=== PATIENT | female | born 1975 | race Caucasian/White ===

== ENCOUNTER 2016-11-19 15:54 | Observation (INO) | payer BC ==
[2016-11-19] MEDS ORDERED: Morphine INJ* 4 MG/ML 1 ML CARPUJECT IV ONE (16:49)
[2016-11-19] MEDS ORDERED: Metoclopramide IV* 5 MG/ML 2 ML VIAL IV SLOW PU ONE (16:49)
--- NOTE | 2016-11-19 16:52 | ED ---
- HPI Summary HPI Summary: 40F LMP in september presents with lower abdominal pain for a day. She took a test on saturday and it was positive. She states since then she has developed nausea and vomiting. She has been having different pelvic pain over past couple days. Today she developed pain in RLQ that radiates down right leg. She states her pain radiates to her flank. She denies any dysuria, frequency, urgency. She has never experienced this pain in before. She has never had this pain before. She denies any previous abdominal surgeries. She denies any fever. She denies any constipation or diarrhea. She admits to anorexia. She has sacroiliac joint disfunction and take percocet and morphine patch daily. - History of Current Complaint Chief Complaint: EDAbdPain Stated Complaint: ABD/LOWER BACK PAIN Time Seen by Provider: 11/19/16 16:35 Pain Intensity: 7 - Assessment Hx Hysterectomy: No - Allergies/Home Medications Allergies/Adverse Reactions: Allergies Allergy/AdvReac Type Severity Reaction Status Date / Time No Known Allergies Allergy Verified 11/19/16 16:14 Home Medications: Home Medications Aspirin TAB* [Aspirin 325 MG TAB*] 325 mg PO Q6H PRN 11/19/16 [History Confirmed 11/19/16] Buprenorphine 15 MCG PATCH(NF) [Butrans 15 MCG PATCH(NF)] 15 mcg TRANSDERM WEEKLY 11/19/16 [History Confirmed 11/19/16] Cyanocobalamin TAB (NF) [B-12 Tabs (Nf)] 2,500 mcg SL DAILY 11/19/16 [History Confirmed 11/19/16] DULoxetine CAP* [Cymbalta CAP*] 60 mg PO DAILY 11/19/16 [History Confirmed ] Hydrocodone-Acetaminophen [Lorcet Plus 7.5-325 mg] 1 tab PO TID MDD 3 tabs 11/19 [History Confirmed 11/19/16] PMH/Surg Hx/FS Hx/Imm Hx Endocrine/Hematology History: Denies: Hx Diabetes Cardiovascular History: Denies: Hx Hypertension, Hx Pacemaker/ICD History: Denies: Hx Dialysis, Hx Renal Disease Musculoskeletal History: Reports: Hx Back Problems Sensory History: Denies: Hx Hearing Aid Neurological History: Reports: Other Neuro Impairments/Disorders - PAIN CLINIC PT Psychiatric History: Reports: Hx Anxiety Denies: Hx Panic Disorder - Cancer History Cancer Type, 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 - Surgical History Surgery Procedure, Year, and Place: LEEP PROCEDURE 2006 Infectious Disease History: No Infectious Disease History: Denies: Traveled Outside the [place] in Last 30 Days - Family History Known Family History: Positive: Hypertension - Social History Alcohol Use: None Alcohol Amount: 1/2 to one glass of wine a night Substance Use Type: Reports: None Substance Use Comment - Amount & Last Used: recent overuse of medications Hydrocodone and Lyrica Smoking Status (MU): Light Every Day Tobacco Smoker Type: Cigarettes Amount Used/How Often: 1/3 PPD Have You Smoked in the Last Year: Yes Review of Systems Negative: Fever Negative: Chest Pain Negative: Shortness Of Breath Positive: Abdominal Pain, Vomiting, Nausea. Negative: Diarrhea All Other Systems Reviewed And Are Negative: Yes Physical Exam - Physical Exam Triage Information Reviewed: Yes Vital Signs Reviewed: Yes Appearance: Positive: Pain Distress Skin: Positive: Warm, Dry Head/Face: Positive: Normal Head/Face Inspection Eyes: Positive: Normal, EOMI, ELOY, Conjunctiva Clear ENT: Positive: Normal ENT inspection, Pharynx normal, TMs normal Respiratory/Lung Sounds: Positive: Clear to Auscultation, Breath Sounds Present Cardiovascular: Positive: Normal, RRR Abdomen Description: Positive: Soft, Other: - tenderness in RLQ and LLQ, no rebound Bowel Sounds: Positive: Present Psychiatric: Positive: Anxious Diagnostics - Vital Signs Vital Signs Temp Pulse Resp BP Pulse Ox 11/19/16 16:15 99.3 F 126 20 107/74 97 - Laboratory Result Diagrams: 11/19/16 16:56 11/19/16 16:56 Lab Statement: Any lab studies that have been ordered have been reviewed, and results considered in the medical decision making process. - Ultrasound No standard instances Ultrasound Interpretation: Positive (See Comments) - IMPRESSION: In the right lower quadrant apparently corresponding to the patient's site of maximum tenderness there is a 2.3 x 2.3 mostly fluid-filled structure that could represent an enlarged appendix or a peritoneal fluid collection. 1. There is an empty gestational sac measuring 3 mm in average dimension which corresponds to a gestational age of 4 weeks and 5 days. The diagnostic possibilities include a gestation that is too early to visualize, spontaneous or ectopic . Recommend close clinical and maternal monitoring including acquisition of serial beta-hCG. 2. At least one uterine fibroid is noted unlikely to BE related to the patient's current presentation. Ultrasound Interpretation Completed By: Radiologist Course/Dx - Course Course Of Treatment: 40F LMP in september presents with lower abdominal pain for a day. She took a test on saturday and it was positive. She states since then she has developed nausea and vomiting. She has been having different pelvic pain over past couple days. Today she developed pain in RLQ that radiates down right leg. She states her pain radiates to her flank. She denies any dysuria, frequency, urgency. She has never experienced this pain in before. She has never had this pain before. She denies any previous abdominal surgeries. She denies any fever. She denies any constipation or diarrhea. She admits to anorexia. on exam tender RLQ and LLQ. greatest in RLQ, pos obturator. is in visible pain distress. wbc 21 with left shift. u/s shows fluid filled structure in RLQ. could be appendicitis vs ectopic. spoke with dr erickson and dr north. patient does not want so dr erickson is getting CT. CT shows appendicitis. dr Erickson is taking to OR for appendicitis. - Differential Diagnosis/HQI/PQRI: Appendicitis, Ectopic , Ovarian Torsion - Diagnoses Provider Diagnoses: Appendicitis Discharge - Discharge Plan Condition: Guarded Disposition: ADMITTED TO [facility]
[2016-11-19] MEDS: NS 0.9% 1000 ML* 2,000 ML IV ONE ×2 (16:56→18:53)
[2016-11-19 17:04] LABS: Hematocrit 38 % (35-47); Hemoglobin 12.9 g/dl (12.0-16.0); Mean Corpuscular HGB Conc 34 g/dl (31-36); Mean Corpuscular Hemoglobin 33 pg (27-31); Mean Corpuscular Volume 98 fL (80-97); Mean Platelet Volume 9 um3 (7.4-10.4); Red Blood Count 3.88 10^6/ul (4.0-5.4); Red Cell Distribution Width 13 % (10.5-15)
[2016-11-19] MEDS ORDERED: HYDROmorphone INJ* 1 MG/ML CARPUJECT SYRINGE IV SLOW PU ONE ×4 (17:05→18:46)
[2016-11-19] MEDS ORDERED: HYDROmorphone INJ* 1 MG/ML CARPUJECT SYRINGE ONE (17:06)
[2016-11-19 17:22] LABS: ALT 16 U/L (7-52); AST 22 U/L (13-39); Albumin 3.6 g/dL (3.2-5.2); Alkaline Phosphatase 67 U/L (34-104); Anion Gap 8 mmol/L (2-11); BUN/Creatinine Ratio 11.7 (8-20); Blood Urea Nitrogen 7 mg/dL (6-24); CO2 Carbon Dioxide 24 mmol/L (22-32); Calcium 8.8 mg/dL (8.6-10.3); Chloride 101 mmol/L (101-111); EGFR African American 142.4 (>60); EGFR Non-African American 110.7 (>60); Globulin 2.6 g/dL (2-4); Glucose 150 mg/dL (70-100); Lipase < 10 U/L (11.0-82.0); Potassium 3.7 mmol/L (3.5-5.0); Sodium 133 mmol/L (133-145); Total Protein 6.2 g/dL (6.4-8.9)
[2016-11-19 17:56] LABS: Urine Bacteria Absent (Absent); Urine Bilirubin Negative (Negative); Urine Glucose Negative (Negative); Urine Nitrite Negative (Negative)
--- NOTE | 2016-11-19 18:59 | RAD ---
INDICATION: Pelvic pain in a woman with a positive beta-hCG. COMPARISON: CT abdomen pelvis April 21, 2015. TECHNIQUE: Real time ultrasound images of the right lower quadrant were acquired in wilson scale and Doppler color flow. FINDINGS: In the right lower quadrant there is a fluid containing blind-ending tubular structure measuring up to 2.3 x 2.3 cm in diameter. The basket machine operator reports the patient exhibits severe pain with compression and therefore compressibility cannot be determined. There are no definite large lymph nodes identified. IMPRESSION: In the right lower quadrant apparently corresponding to the patient's site of maximum tenderness there is a 2.3 x 2.3 mostly fluid-filled structure that could represent an enlarged appendix or a peritoneal fluid collection.
--- NOTE | 2016-11-19 19:10 | RAD ---
HISTORY: Increasingly severe right-sided pelvic pain x1 day COMPARISONS: None TECHNIQUE: Multiple transverse and longitudinal ultrasound images were obtained of the pelvis using grayscale, color flow, spectral and M-mode sonographic imaging. Please note evaluation is severely limited due to the patient's pain level and intolerance of the ultrasound probe. FINDINGS: UTERUS: The uterus measures 8.7 x 4.6 x 6.9 cm. The endometrial stripe measures up to 2.1 cm in thickness. At least one hypoechogenic subserosal focus could be a uterine fibroid. GESTATION: There is a small fundal height gestational sac measuring 3 mm in average dimension corresponding to a gestational age of 4 weeks and 5 days. There is no products of conception located within this gestational sac. CUL-DE-SAC: There is a small amount of free fluid in the cul-de-sac. RIGHT OVARY: The right ovary measures 4.6 x 2.2 x 3.1 cm. Within the right ovary there is a heterogeneous and avascular structure measuring 1.8 x 1.3 x 2.0 cm. LEFT OVARY: The left ovary measures 3.2 x 1.7 x 2.5 cm. IMPRESSION: 1. There is an empty gestational sac measuring 3 mm in average dimension which corresponds to a gestational age of 4 weeks and 5 days. The diagnostic possibilities include a gestation that is too early to visualize, spontaneous or ectopic . Recommend close clinical and maternal monitoring including acquisition of serial beta-hCG. 2. At least one uterine fibroid is noted unlikely to BE related to the patient's current presentation.
[2016-11-19] MEDS ORDERED: Iohexol 300* (CONTRAST) 10 ML SDV IV ONE (20:21)
--- NOTE | 2016-11-19 20:58 | RAD ---
CLINICAL HISTORY: 24 hours of mostly right-sided abdominal pain with leukocytosis. The patient currently has a positive beta-hCG. COMPARISON: Same day ultrasound of the pelvis and right lower quadrant. TECHNIQUE: Contrast enhanced CT examination of the abdomen and pelvis from the lung bases through the initial tuberosities. The patient received 69 mL Omnipaque 300 intravenously prior to imaging. The patient did not receive oral contrast. FINDINGS: VISUALIZED LUNG BASES: The visualized lung bases are grossly clear. There is no pleural effusion. ABDOMEN AND PELVIS: There is focal fatty infiltration adjacent to the falciform ligament. The liver is otherwise homogenous in attenuation. The spleen, pancreas and adrenal glands are grossly normal in appearance. The gallbladder is normal. The kidneys are normal in appearance without focal mass, calcification or signs of hydronephrosis. There is no pathologic dilatation of the small or large bowel. There is hyperdense material in the base of the cecum and proximal portion of the transverse colon. There is hyperdense material in the proximal portion of the appendix (axial image 129 and coronal images 33 through 39). At its proximal portion the appendix measures up to 1.26 cm in diameter. At the appendiceal tip there is an intraluminal fluid collection measuring approximately 1.5 x 1.5 cm in the axial plane and 2.4 cm in the cephalocaudal projection. There is scattered peritoneal ascites predominantly located in the pelvis surrounding the uterus. There is no gross retroperitoneal or mesenteric lymphadenopathy. The pelvic viscera is normal in appearance. At the right adnexa there is a 1.6 cm low-density structure corresponding to the ovarian cyst seen on the previous pelvic ultrasound. The abdominal aorta and iliac arteries are normal in course and diameter. There is mild levoconvex curvature of the lower thoracic and lumbar spine.There are no sinister bone lesions. IMPRESSION: 1. CT findings are most consistent with acute appendicitis with scattered peritoneal ascites predominantly involving the the pelvic peritoneal cavity. 2. Knowing the patient has a positive beta-hCG, ectopic should still be a diagnostic consideration. 3. Hyperdense material in the colon could be seen with recent ingestion of antacids. Findings were reviewed in person with Dr. Velasquez at approximately 2040 hours on November 19, 2016.
[2016-11-19] MEDS ORDERED: Piperacillin/Tazobactam VIAL*) 3.375 GM VIAL (COMPD & OVERRIDE) IVPB ONE (21:53)
[2016-11-19] MEDS ORDERED: fentaNYL* 50 MCG/ML 2 ML VIAL (100 MCG VIAL) ONE (22:11)
[2016-11-19] MEDS ORDERED: Midazolam* 1 MG/ML 5 ML VIAL (5 MG) ONE (22:11)
[2016-11-19] MEDS ORDERED: Rocuronium* 10 MG/ML VIAL ONE (22:23)
[2016-11-19] MEDS ORDERED: Labetalol IV* 5 MG/ML 20 ML VIAL ONE (22:39)
[2016-11-19] MEDS ORDERED: Dexamethasone IV* 4 MG/ML 1 ML (4 MG) ONE (22:40)
[2016-11-19] MEDS ORDERED: Propofol* 10 MG/ML 20 ML BTL IV PUSH ONE (22:40)
[2016-11-19] MEDS ORDERED: Lidocaine 2% PF * 5 ML VIAL ONE (22:40)
[2016-11-19] MEDS ORDERED: Famotidine IV* 10 MG/ML 2 ML (20 mg) ONE (22:40)
[2016-11-19] MEDS ORDERED: Phenylephrine IV* 40 MCG/ML 10 ML SYRINGE ONE (22:41)
[2016-11-19] MEDS ORDERED: Bupivacaine 0.25% SDV* 30 ML ONE (22:48)
[2016-11-19] MEDS ORDERED: Buffered Lidocaine 0.9% SYRIN* 5 ML/SYR SYRINGE INTRADERM ONE (22:52)
[2016-11-19] MEDS ORDERED: Hetastarch in NS* 500 ML IV ONE (22:54)
[2016-11-19] MEDS ORDERED: fentaNYL* 50 MCG/ML 2 ML VIAL (100 MCG VIAL) IV PRN (23:15)
[2016-11-19] MEDS ORDERED: Acetaminophen TAB* 325 MG PO PRN (23:15)
[2016-11-19] MEDS ORDERED: PROCHLORPERAZINE INJ 5 MG/ML 2 ML VIAL IV PRN (23:15)
[2016-11-19] MEDS ORDERED: DiMENhydriNATE IV* 50 MG/ML VIAL IV PUSH PRN (23:15)
[2016-11-19] MEDS ORDERED: Ondansetron INJ* 2 MG/ML VIAL ONE (23:48)
--- NOTE | 2016-11-20 | HP ---
CC: [facility]; Dr. Cintron; Dr. Hare, [facility] * HISTORY AND PHYSICAL: DATE OF ADMISSION: 11/19/16 REASON FOR CONSULTATION: Right lower quadrant abdominal pain, anorexia, and new . HISTORY OF PRESENT ILLNESS: Ms. Faina Fischer is a 40-year-old woman without significant medical history, although she has chronic low back pain and pelvic discomfort, who yesterday developed some upper abdominal pain, mainly epigastric associated with some anorexia. She slept last night, woke up this morning with pain that had been now migrated into the right lower quadrant, which became quite severe over the course of the day. It hurts to move, cough, or lift her legs. She had no fevers, but had been anorexic all day. There has been no diarrhea, change in bowel habits nor she had any vaginal bleeding. Of note, she has just found out on Saturday that she was and this was not a planned . There is documentation in the chart from her Model Dresser, Dr. Cintron documenting a conversation with her that she and her have planned to terminate the . When seen in the ER she was noted to be afebrile, but had a heart rate into the 120s. Laboratory workup included a white cell of 21,000 with a left shift. She had a beta hCG of 2873. Electrolytes were within normal limits. She was noted to have lower abdominal pain. She underwent a transvaginal ultrasound. I discussed these with the radiologist , Dr. Xiong. This showed an empty gestational sac, perhaps with a size that corresponded about 4 weeks and 5 days, which showed findings worrisome for an pending spontaneous or ectopic . Uterine fibroid was also noted. She also underwent a right lower quadrant ultrasound, which showed tenderness on deeper palpation and also a 2.3 x 2.3 cm mostly fluid-filled structure, noncompressible, which could represent a fluid collection or an enlarged appendix. After discussion with the patient and her , and the fact that she and her decided to terminate the due to their present circumstances and situation, she underwent a CT scan of the abdomen and pelvis. The radiologist was informed of this radiation exposure in a woman, as well as the fact that she is planning to electively terminate the and that a CT scan would give additional diagnostic input regarding her diagnosis. The CAT scan of the abdomen and pelvis with IV contrast showed findings of a dilated tubular structure attached to the cecum, most likely consistent with acute appendicitis. However, there was a significant amount of pelvic fluid, more so than felt that from a typical appendicitis and certainly ectopic was considered as a diagnosis. Surgical consultation was obtained. PAST MEDICAL HISTORY: 1. Sacroiliac discomfort. 2. Chronic pelvic and perineal pain. PAST SURGICAL HISTORY: None. MEDICATIONS: Include: 1. Cyanocobalamin. 2. Aspirin. 3. Lorcet. 4. Cymbalta 60 mg daily. 5. Buprenorphine 15 mcg transderm patch weekly for pain. ALLERGIES: She has no known drug allergies. SOCIAL HISTORY: She smokes cigarettes on a daily basis. She is , has a 4- year-old son and an older 20-year-old daughter. She drinks alcohol occasionally and socially. REVIEW OF SYSTEMS: As per above. She has had no vaginal bleeding or drainage. She has had no urinary complaints. There has been no hematuria. PHYSICAL EXAMINATION GENERAL: She is a slender female who appears to be uncomfortable, although she is lying in the gurney. Awake, alert, and conversive. VITAL SIGNS: Temperature is 99.3, pulse is 124, blood pressure is 108/63. HEENT: Oral mucosa is slightly dry. LUNGS: Clear to auscultation with normal respiratory effort. HEART: Regular rate and rhythm without murmurs, rubs, or gallops. ABDOMEN: Firm and nondistended. There are no prior surgical incisions or hernias. She had diminished bowel sounds throughout. She has tenderness in the right lower quadrant with some rigidity and guarding. She has no generalized peritoneal irritation; however, this appears to be localized and her findings are consistent with localized right lower quadrant peritonitis. IMPRESSION: Right lower quadrant abdominal pain, leukocytosis, and workup most likely consistent with acute appendicitis. She also is newly discovered that she is and certainly concerned especially with the ultrasound findings is that of an ruptured ectopic , although this is early in the course of her for such an event. After reviewing her history, presentation, and physical examination as well as discussing her care with Dr. Daniel Martell from Obstetrics and Gynecology, he also feels less likely that this is an ectopic ; however, certainly could be a possibility. At this point, I have recommended now, however, that we proceed with a diagnostic laparoscopy for Mrs. Fischer. I have discussed this with both her and her . They understand the workup so far and also agree with the recommendation that this is indicated. Plan for tonight is diagnostic laparoscopy, probable laparoscopic appendectomy. Dr. Martell is going to be available and we will have come in for intraoperative consultation depending on the findings to evaluate ovaries, uterus, and fallopian tubes, especially if the appendix does not appear to be significantly inflamed. Certainly, I have also discussed the fact there is may be another entity causing her discomfort and that other surgical indicated procedures may be necessary to perform. Overall, the risks are but not limited to bleeding, infection, intraabdominal abscess formation, possibility of an open procedure, possibility of bowel resection, abscess formation, risk of general anesthesia, deep vein thrombosis were all explained. Both she and her gave consent to proceed and we will plan this for this evening. She will be started on IV Zosyn. [id number]/[facility] #: [id number] MTDD
--- NOTE | 2016-11-20 00:09 | SURGPN ---
Brief Operative Note - Surgery Procedures: OPERATIVE REPORT PRE-OP: Right lower abdominal pain, leukocytosis POST-OP: Same, Perforated gangrenous appendicitis with purulent peritonitis PROCEDURE: Laparoscopic appendectomy SURGEON: MD Ron ANESTHESIA: General with Local, Dr. Ryan ASST: none IVF: 1 liter of crystalloid, 500 cc of hetastarch EBL: min SPECIMEN: appendix DRAIN: # 10 CHOLO drain WOUND CLASS: 4 COMPLICATIONS: none TO PACU
[2016-11-20] MEDS ORDERED: Acetaminophen TAB* 325 MG PO PRN (00:11)
[2016-11-20] MEDS ORDERED: HYDROmorphone INJ* 1 MG/ML CARPUJECT SYRINGE IV SLOW PU PRN (00:11)
[2016-11-20] MEDS ORDERED: oxyCODONE/Acetamin 5/325 MG* TAB PO PRN (00:14)
[2016-11-20] MEDS: NS 0.9% 1000 ML* 1,000 ML IV SCH ×3 (01:28→18:35)
[2016-11-20] MEDS: Ondansetron INJ* 2 MG/ML VIAL IV SCH ×6 (01:28→21:44)
[2016-11-20] MEDS: Ketorolac INJ* 30 MG/ML 1 ML VIAL IV PUSH PRN (02:55)
--- NOTE | 2016-11-20 08:42 | PN ---
Progress Note - Progress Note Date of Service: 11/20/16 SOAP: Subjective: Awake and alert this morning-feels much better Pain is adequately controlled. Tolerating clear liquids and no N/V Objective: Temp Pulse Resp BP Pulse Ox 99.6 F 91 16 90/53 100 11/20/16 07:22 11/20/16 07:31 11/20/16 07:22 11/20/16 07:39 11/20/16 07:22 Intake & Output 11/18/16 11/19/16 11/20/16 11/21/16 06:59 06:59 06:59 06:59 Intake Total 2600 Output Total 640 Balance 1960 Weight 113 lb Intake: IV Fluids 2600 HETASTARCH 500 LR 1000 NS 100ML, Zosyn 3.375G 100 Output: CHOLO #1 190 Urine 450 PEX: Awake and alert Lungs are clear Cor is RRR Abd is soft and slightly distended. Bowel sounds are absent. Incisions are clean and dry. CHOLO in place with serosanguinous fluid in bulb Labs are pending Assessment: POD #1 s/p lap appy for perforated appendicititis with purulent peritonitis Pregnacy-please see previous notes Plan: IV Abx IVF Increase activity Po as tolerated She plans termination of -this had been decided before she developed appendicitis. She requires inpatient care as above.
[2016-11-20] MEDS: DULoxetine DR CAP* 30 MG CAP.DR PO SCH (09:06)
[2016-11-20] MEDS: oxyCODONE/Acetamin 5/325 MG* TAB PO PRN ×4 (09:06→21:43)
[2016-11-20 10:03] LABS: Hematocrit 31 % (35-47); Hemoglobin 10.4 g/dl (12.0-16.0); Mean Corpuscular HGB Conc 34 g/dl (31-36); Mean Corpuscular Hemoglobin 34 pg (27-31); Mean Corpuscular Volume 100 fL (80-97); Mean Platelet Volume 10 um3 (7.4-10.4); Red Cell Distribution Width 13 % (10.5-15); White Blood Count 13.9 10^3/ul (3.5-10.8)
[2016-11-20 10:14] LABS: BUN/Creatinine Ratio 13.3 (8-20); EGFR African American 142.4 (>60); EGFR Non-African American 110.7 (>60); Potassium 3.5 mmol/L (3.5-5.0)
--- NOTE | 2016-11-20 14:28 | OP ---
CC: Dr. Chong Cintron, Rheumatology; Dr. Hare, [facility] Medicine * DATE OF OPERATION: 11/20/16 - ROOM #332 DATE OF : 75 SURGEON: Zaheer Velasquez MD WATER/WASTEWATER PROJECT ENGINEER: None. ANESTHESIOLOGIST: Michelle Ryan MD ANESTHESIA: General with local. PRE-OP DIAGNOSES: 1. Leukocytosis with right lower quadrant abdominal pain. 2. . POST-OP DIAGNOSES: 1. Leukocytosis with right lower quadrant abdominal pain. 2. Gangrenous perforated appendicitis with generalized purulent peritonitis. OPERATIVE PROCEDURE: Laparoscopic appendectomy. INDICATIONS: Ms. Faina Fischer is a 40-year-old woman with chronic low back pain and arthritis and who also recently found out that she was approximately 4 to 5 weeks, presented to the emergency room with just over 24 hours of severe abdominal discomfort mainly in the right side. She had leukocytosis. Ultrasound showed findings were suspicious acute appendicitis and confirmed by CT scan. She is , this is an unplanned and after discussion with her and her , the plan is for termination of the . Obstetrics was also consulted as there was also a concern for a possible ectopic in the differential diagnosis. She is now being taken to the operating room for laparoscopy. IV FLUIDS: 1 L of crystalloid, 500 cc of hetastarch. ESTIMATED BLOOD LOSS: Not recorded. URINE OUTPUT: Not recorded. SPECIMEN: Appendix. WOUND CLASSIFICATION: IV. DRAINS: #10 CHOLO drain down in the pelvis. COMPLICATIONS: None. DESCRIPTION OF PROCEDURE: Written informed consent was obtained, the abdomen was marked with indelible ink and preoperative antibiotics were administered. The patient was taken to the operating room and placed in the supine position. Sequential compression devices and warming blanket were applied. General anesthesia was administered and the abdomen was prepped and draped in the usual sterile fashion. Time-out verification was completed. A small transverse incision was made just above the umbilicus. The peritoneal cavity was entered under direct vision. A 12-mm blunt port was inserted and the abdomen was insufflated to 15 mmHg. Under direct vision, a 5-mm port was placed in the left lower abdominal wall and a second 5-mm port was placed in the suprapubic position. It was obvious that there was purulent peritonitis in all 4 quadrants of the abdomen with fibrin and turbid fluid especially in the pelvis, lower abdomen, and also around the liver and spleen as well. With careful evaluation, I was able to reflect the omentum superiorly and initially view of the right lower quadrant revealed a gangrenous appendicitis with areas of perforation. This was stuck to the lateral sidewall. I was able to peel off the small bowel to expose this and bring this up into view. The mesentery was identified and divided from the distal appendix towards the cecum. The cecum appeared to be normal. The LigaSure device was used to divide the mesentery and care was to prevent further spillage from several holes in the appendix throughout the remainder of the case. The base of the cecum appeared to be unremarkable and healthy and used a lainez load of an Endo NERY 45-mm stapler to divide the appendix at its base. Staple line was intact through viable tissue. The appendix was placed in an EndoCatch bag and brought through the umbilical incision. Next used almost 8 to 9 L of saline irrigation all 4 quadrants of the abdomen including the pelvis. I was able to visualize the uterus, which appeared to be normal other than erythematous. Dr. Martell from Obstetrics did view this area, although it was difficult due to the bowel distention, but in light of the diagnosis, we felt that obvious related source as such as an ectopic of her pain was certainly much less likely. Once the irrigation had cleared significantly, I placed a #10 CHOLO drain down into the pelvis, behind the uterus, brought up through a separate stab wound to the right side of the abdominal wall. All ports removed under direct vision in the camera. There was no abdominal wall bleeding. The umbilical fascia was closed with interrupted 0 Polysorb suture. The skin was approximated at all 3 incisions with subcuticular 4-0 Polysorb suture. Steri-Strips were applied. The patient tolerated the procedure well and was taken to the recovery room in stable condition. [id number]/[facility] #: [id number] NEIL
[2016-11-20] MEDS: Heparin VIAL(*) 5000 UNITS/ML VIAL (FIVE THOUSAND) SUBCUT SCH ×2 (14:43→21:46)
[2016-11-21] MEDS: oxyCODONE/Acetamin 5/325 MG* TAB PO PRN ×6 (01:43→23:39)
[2016-11-21] MEDS: Ondansetron INJ* 2 MG/ML VIAL IV SCH ×6 (01:44→21:26)
[2016-11-21] MEDS: Ketorolac INJ* 30 MG/ML 1 ML VIAL IV PUSH PRN ×4 (01:51→21:22)
[2016-11-21] MEDS: NS 0.9% 1000 ML* 1,000 ML IV SCH (01:54)
[2016-11-21 05:37] LABS: Hematocrit 28 % (35-47); Hemoglobin 9.5 g/dl (12.0-16.0); Mean Corpuscular HGB Conc 34 g/dl (31-36); Mean Corpuscular Hemoglobin 34 pg (27-31); Mean Corpuscular Volume 99 fL (80-97); Mean Platelet Volume 10 um3 (7.4-10.4); Red Blood Count 2.85 10^6/ul (4.0-5.4); Red Cell Distribution Width 13 % (10.5-15); White Blood Count 12.8 10^3/ul (3.5-10.8)
[2016-11-21] MEDS: Heparin VIAL(*) 5000 UNITS/ML VIAL (FIVE THOUSAND) SUBCUT SCH ×3 (05:42→22:07)
[2016-11-21 05:57] LABS: BUN/Creatinine Ratio 17.3 (8-20); Calcium 7.2 mg/dL (8.6-10.3); EGFR Non-African American 130.6 (>60); Potassium 3.3 mmol/L (3.5-5.0)
[2016-11-21] MEDS ORDERED: NS 0.9% 1000 ML* 1,000 ML IV SCH (08:30)
[2016-11-21] MEDS: DULoxetine DR CAP* 30 MG CAP.DR PO SCH (09:44)
--- NOTE | 2016-11-21 10:41 | PN ---
Progress Note - Progress Note Date of Service: 11/21/16 SOAP: Subjective: She feels better today Ambulating in halls and her pain is improved She is tolerating liquids and is passing flatus, no BM Objective: Temp Pulse Resp BP Pulse Ox 98.0 F 78 18 93/58 98 11/21/16 07:32 11/21/16 07:32 11/21/16 09:45 11/21/16 07:32 11/21/16 08:00 Intake & Output 11/19/16 11/20/16 11/21/16 11/22/16 06:59 06:59 06:59 06:59 Intake Total 3705 5205 Output Total 640 1565 100 Balance 3065 3640 -100 Weight 113 lb Intake: IV Fluids 3705 3416 ABX - ZOSYN 285 HETASTARCH 500 LR 1000 1569 NS 958 NS 100ML, Zosyn 3.375G 100 IVPB 39 Oral 1750 Output: CHOLO #1 190 290 100 Urine 450 1275 Other: # Bowel Movements 0 PEX: Comfortable and awake and alert Lungs are clear Abd is soft and slightly distended. Bowel sounds are present. Incisions are clean and dry. CHOLO in place with some thick yellow turbid fluid in bulb. Laboratory Results - last 24 hr 11/21/16 11/21/16 04:41 04:41 WBC 12.8 H RBC 2.85 L Hgb 9.5 L Hct 28 L MCV 99 H MCH 34 H MCHC 34 RDW 13 Plt Count 146 L MPV 10 Sodium 136 Potassium 3.3 L Chloride 110 Carbon Dioxide 24 Anion Gap 2 BUN 9 Creatinine 0.52 Est GFR ( Amer) 168.0 Est GFR (Non-Af Amer) 130.6 BUN/Creatinine Ratio 17.3 Glucose 82 Calcium 7.2 L Assessment: POD # 2 s/p lap appy for perforated gangrenous appendicitis with purulent peritonitis. WBC improved Plan: Advance diet, decrease IVF Continue IV abx Follow CHOLO drainage-appears purulent today and may keep in for one more day Increase activity and pulmonary toilet Sub q heparin Recheck WBC in AM
[2016-11-21] MEDS ORDERED: HYDROmorphone INJ* 2 MG/ML CARPUJECT SYRINGE IV SLOW PU PRN (20:14)
[2016-11-22] MEDS: Ondansetron INJ* 2 MG/ML VIAL IV SCH ×3 (00:56→09:30)
[2016-11-22] MEDS: oxyCODONE/Acetamin 5/325 MG* TAB PO PRN ×2 (03:38→07:40)
[2016-11-22] MEDS: Ketorolac INJ* 30 MG/ML 1 ML VIAL IV PUSH PRN ×2 (03:39→09:57)
[2016-11-22] MEDS: Heparin VIAL(*) 5000 UNITS/ML VIAL (FIVE THOUSAND) SUBCUT SCH (06:12)
[2016-11-22 06:29] LABS: Hematocrit 27 % (35-47); Hemoglobin 9.3 g/dl (12.0-16.0); Mean Corpuscular HGB Conc 34 g/dl (31-36); Mean Corpuscular Hemoglobin 34 pg (27-31); Mean Corpuscular Volume 99 fL (80-97); Mean Platelet Volume 10 um3 (7.4-10.4); Red Blood Count 2.77 10^6/ul (4.0-5.4); Red Cell Distribution Width 13 % (10.5-15)
[2016-11-22 08:25] VITALS: BP 99/59
[2016-11-22] MEDS: DULoxetine DR CAP* 30 MG CAP.DR PO SCH (09:22)
--- NOTE | 2016-11-22 09:31 | PN ---
Progress Note - Progress Note Date of Service: 11/22/16 SOAP: Subjective: Doing well Tolerating a regular diet Passing flatus Ambulating in halls Pain adequately controlled Objective: Temp Pulse Resp BP Pulse Ox 98.0 F 80 20 99/59 95 11/22/16 07:34 11/22/16 07:34 11/22/16 08:00 11/22/16 07:34 11/22/16 08:55 Intake & Output 11/20/16 11/21/16 11/22/16 11/23/16 06:59 06:59 06:59 06:59 Intake Total 3705 5205 2525 Output Total 640 1565 1790 400 Balance 3065 3640 735 -400 Weight 113 lb Intake: IV Fluids 3705 3416 100 ABX - ZOSYN 285 HETASTARCH 500 LR 1000 1569 NS 958 NS 100ML, Zosyn 3.375G 100 IVPB 39 215 Oral 1750 2210 Output: CHOLO #1 190 290 190 Urine 450 1275 1600 400 Other: # Bowel Movements 0 PEX: Comfortable Lungs are clear Abd is soft and slightly distended. Bowel sounds are present. Incisions are clean and dry. CHOLO in place with serous fluid in bulb. Ext without edema Laboratory Results - last 24 hr 11/22/16 06:01 WBC 9.0 RBC 2.77 L Hgb 9.3 L Hct 27 L MCV 99 H MCH 34 H MCHC 34 RDW 13 Plt Count 150 MPV 10 Neut % (Auto) 83.6 H Lymph % (Auto) 8.7 L [place] % (Auto) 5.1 Eos % (Auto) 2.3 Baso % (Auto) 0.3 Absolute Neuts (auto) 7.5 Absolute Lymphs (auto) 0.8 L Absolute Monos (auto) 0.5 Absolute Eos (auto) 0.2 Absolute Basos (auto) 0 Absolute Nucleated RBC 0 Nucleated RBC % 0 Assessment: POD# 3 s/p lap appy for acute perforated appendicitis with purulent peritonitis Doing well Plan: D/C home 10 days of oral Augmentin Percocet sent to pharmacy Outpatient appointment made Instructions all reviewed with patient and .
--- NOTE | 2016-11-22 10:32 | DS ---
CC: [facility]; Dr. Cintron, [facility]; Dr. Hare of [facility] DATE OF ADMISSION: 11/20/2016. DATE OF DISCHARGE: 11/22/2016. DATE OF SERVICE/DICTATION: 11/22/2016. PRINCIPAL DIAGNOSIS: Acute perforated appendicitis with purulent peritonitis. SECONDARY DIAGNOSIS: . PROCEDURE PERFORMED: Laparoscopic appendectomy. CONDITION ON DISCHARGE: Good. DISPOSITION: To home. MEDICATIONS ON DISCHARGE: Her usual oral pain medicine and analgesic patch. She was given a prescr iption for Percocet, 12 tablets for use for incisional pain, as well as Augmentin 875 one tablet p.o . b.i.d. for 10 days for treatment of her appendicitis. FOLLOW-UP: Arrangements were made for office visit the next week. Wound instruction and care sheet were also given to the patient. HISTORY OF PRESENT ILLNESS: Ms. Faina Fischer is a 40-year-old woman with a history of chronic low back and pelvic discomfort who presented to the emergency room with 24 hours of worsening abdominal discomfort becoming localized in the right lower quadrant. She is noted to be tachycardic in the em ergency room with tenderness throughout the abdomen and a noted leukocytosis of over 20,000. She trevino d undergone an ultrasound. Coincidentally, she had found out that she was 24 hours prior to presentation and was felt to be at about four to five weeks. Prior to presenting to the emergency room and becoming ill, she and her had decided that they would not follow through with the and the plan was f or termination. Work-up in the emergency room included a CT scan which showed findings consistent with acute appendi citis. She was seen in surgical consultation and her care was also discussed with the explosives worker operations research director, Dr. Martell. HOSPITAL COURSE: After appropriate consultations in the emergency room and discussion with the joseluis ent and her , it was recommended that she be taken emergently to the operating room for a lap aroscopy. Findings at laparoscopy were that of an acute gangrenous perforated appendicitis with purulent perit onitis requiring a laparoscopic appendectomy and abdominal wash out. CHOLO drain was placed postoperat ively. She did well and was maintained on IV Zosyn. White blood cell count slowly returned to norm al. By the day of discharge, she remained afebrile and her diet was advanced as tolerated. Her felicity n was adequately controlled with oral analgesia as well as Toradol. On postoperative day number three, she was discharged home with the above instructions and follow-up as well as the appropriate obstetric follow-up and care as discussed above with her and her . [id number]/[facility] #: [id number]
== END 2016-11-22 10:19 | disposition home or self-care (01) ==
LOC: ED 15:54 → OR 20:56 → SSU 11-20 00:10
PROVIDERS: ADMIT Surgery; ATTEND Surgery
DX: K35.2 Acute appendicitis with generalized peritonitis (principal); R10.2 Pelvic and perineal pain; N94.9 Unspecified condition associated with female genital organs and menstrual cycle; R10.31 Right lower quadrant pain; M54.5 Low back pain; R00.0 Tachycardia, unspecified; D72.829 Elevated white blood cell count, unspecified; Z33.1 Pregnant state, incidental; F17.210 Nicotine dependence, cigarettes, uncomplicated; R11.2 Nausea with vomiting, unspecified
CPT/HCPCS: 36415; 74177; 76705; 76817; 80048; 80053; 81003; 81015; 83690; 84702; 85025; 85027; 85610; 85730; 86141; 86900; 86901; 87086; 88304; 94760; 96365; 96366; 96372; 96375; 96376; 99284; 99406; A9270-GY; C1776; G0378; J1100; J1170; J1644; J1885; J2250; J2270; J2405; J2543; J2704; J2765; J3010; Q9967

== ENCOUNTER 2019-02-13 13:43 | Emergency (ER) | payer BC ==
[2019-02-13 13:52] VITALS: BP 114/72
--- NOTE | 2019-02-13 14:21 | UC ---
Respiratory Complaint HPI - HPI Summary HPI Summary: 2 WEEKS OF PERSISTENT COUGH AND INTERMITTENT SENSATION OF WHEEZINESS. NO FEVER , NAUSEA/VOMITING. STATES SHE IS FEELING A LITTLE RESTLESS SHE HAS RECENTLY TAPERED OFF CHRONIC OPIOIDS. - History of Current Complaint Chief Complaint: UCRespiratory Stated Complaint: UPPER RESPIRATORY Time Seen by Provider: 02/13/19 14:09 Hx Obtained From: Patient Hx Last Menstrual Period: 01/14/19 Onset/Duration: Gradual Onset, Lasting Weeks, Still Present Timing: Constant Severity Initially: Mild Severity Currently: Mild Pain Intensity: 2 Pain Scale Used: 0-10 Numeric Character: Cough: Nonproductive Aggravating Factors: Nothing Alleviating Factors: Nothing Associated Signs And Symptoms: Positive: Wheezing. Negative: Dyspnea, Fever, Chills, URI, Nasal Congestion - Allergies/Home Medications Allergies/Adverse Reactions: Allergies Allergy/AdvReac Type Severity Reaction Status Date / Time No Known Allergies Allergy Verified 02/13/19 13:52 PMH/Surg Hx/FS Hx/Imm Hx - Additional Past Medical History Additional PMH: CHRONIC PAIN. TAPERED OFF CHRONIC OPIOIDS 01/2019. - Surgical History Surgical History: Yes Surgery Procedure, Year, and Place: LEEP PROCEDURE 2005;. APPY 2017; bilat ciliac joint fusions - Family History Known Family History: Positive: Hypertension - Social History Alcohol Use: None Alcohol Amount: 1/2 to one glass of wine a night Substance Use Type: None Substance Use Comment - Amount & Last Used: recent overuse of medications Hydrocodone and Lyrica Smoking Status (MU): Former Smoker Type: Cigarettes Amount Used/How Often: 1/3 PPD Have You Smoked in the Last Year: Yes Review of Systems All Other Systems Reviewed And Are Negative: Yes Constitutional: Positive: Fatigue ENT: Positive: Negative Respiratory: Positive: Cough, Other - WHEEZE. Negative: Shortness Of Breath Cardiovascular: Positive: Negative Gastrointestinal: Positive: Negative Physical Exam Triage Information Reviewed: Yes Appearance: Well-Appearing, No Pain Distress, Well-Nourished Vital Signs: Initial Vital Signs Temp 98.5 F 02/13/19 13:47 Pulse 110 02/13/19 13:47 Resp 20 02/13/19 13:47 BP 114/72 02/13/19 13:47 Pulse Ox 99 02/13/19 13:47 Vital Signs Reviewed: Yes Eyes: Positive: Conjunctiva Clear ENT: Positive: Hearing grossly normal, Pharynx normal, TMs normal - RIGHT TM WITH SLIGHT ERYTHEMA - PROBABLE MECHANICAL IRRITATION FROM IRRIGATION AND CERUMEN Neck: Positive: Supple, Nontender, No Lymphadenopathy Respiratory: Positive: Lungs clear, Normal breath sounds, No respiratory distress, No accessory muscle use, Other: - DRY COUGH DURING ENCOUNTER Cardiovascular: Positive: Tachycardia Abdomen Description: Positive: Nontender, Soft Musculoskeletal: Positive: No Edema Neurological: Positive: Alert Psychological: Positive: Age Appropriate Behavior Skin: Negative: Rashes Respiratory Course/Dx - Course Course Of Treatment: LOW SUSPICION FOR ANY BACTERIAL INFECTION TODAY. WILL TREAT FOR AIRWAY INFLAMMATION/BRONCHITIS WITH PREDNISONE FOR 5 DAYS. PATIENT STATES HER ALBUTEROL INHALER IS VERY OLD SO WILL PRESCRIBE A NEW ONE. PATIENT WILL FOLLOW- UP IF SHE IS NOT IMPROVING WITH THIS TREATMENT. LEFT EAR SUCCESSFULLY IRRIGATED BY RN TODAY AND TM SEEN TO BE SLIGHTLY ERYTHEMATOUS. PT DENIES ANY PAIN. THE REDNESS IS LIKELY DUE TO MECHANICAL IRRITATION. PT ADVISED TO BE VIGILANT OF HER SX AND SEEK F/U IF NEEDED. - Differential Dx/Diagnosis Provider Diagnosis: Acute bronchitis Discharge ED - Sign-Out/Discharge Documenting (check all that apply): Patient Departure All imaging exams completed and their final reports reviewed: No Studies - Discharge Plan Condition: Stable Disposition: HOME Prescriptions: Albuterol HFA INHALER* [Ventolin HFA Inhaler*] 2 puff INH Q4H PRN #1 mdi PRN Reason: Shortness Of Breath predniSONE TAB* [Deltasone TAB*] 50 mg PO DAILY #5 tab Patient Education Materials: Acute Bronchitis (ED) Referrals: Chong Cintron MD [Primary Care Provider] - If Needed Additional Instructions: NO SIGN OF ANY BACTERIAL INFECTION ON EXAM TODAY. NO INDICATION FOR ANY ANTIBIOTICS. WILL TREAT FOR BRONCHITIS/INFLAMMATION OF THE AIRWAYS WITH 5 DAYS OF PREDNISONE. WILL RENEW YOUR ALBUTEROL INHALER. SEEK FOLLOW-UP HERE OR WITH YOUR PCP IF YOUR SYMPTOMS ARE NOT IMPROVING WITH THIS TREATMENT. - Billing Disposition and Condition Condition: STABLE Disposition: Home
== END 2019-02-13 14:35 | disposition home or self-care (01) ==
LOC: UCEAST 13:43
DX: J20.9 Acute bronchitis, unspecified (principal); Z87.891 Personal history of nicotine dependence
CPT/HCPCS: 99213; G0463

== ENCOUNTER 2019-02-22 14:09 | Emergency (ER) | payer BC ==
[2019-02-22 14:35] VITALS: BP 103/63
--- NOTE | 2019-02-22 14:36 | UC ---
Respiratory Complaint HPI - HPI Summary HPI Summary: 43yo female presenting with dry cough x3 weeks. Patient states she was seen here last week and given albuterol inhaler and 5 day course of prednisone. States inhaler "helps some but only if she takes up to 4 puffs." States prednisone did not help. States PND may be making symptoms worse. Coughing worse at night. Notes mild sob and "feeling like wheezing" with coughing fits. Denies n/v. Denies fever and chills. States she is a "mild smoker" but has not been able to smoke at all since symptoms began. Denies h/o asthma. - History of Current Complaint Stated Complaint: RESPIRATORY Hx Obtained From: Patient Hx Last Menstrual Period: current Pain Intensity: 2 - Allergies/Home Medications Allergies/Adverse Reactions: Allergies Allergy/AdvReac Type Severity Reaction Status Date / Time No Known Allergies Allergy Verified 02/22/19 14:34 Home Medications: Home Medications ALPRAZolam TAB* [Xanax TAB*] 0.25 mg PO BEDTIME 02/22/19 [History Confirmed 07/07] guaiFENesin 100 mg/5 ml LIQ [Robitussin 100 mg/5ml LIQ] 5 mg PO Q4H PRN [History Confirmed 02/22/19] PMH/Surg Hx/FS Hx/Imm Hx Previously Healthy: Yes - Surgical History Surgery Procedure, Year, and Place: LEEP PROCEDURE 2006;. APPY 2018; bilat ciliac joint fusions - Family History Known Family History: Positive: Hypertension - Social History Alcohol Use: Daily Alcohol Amount: 1/2 to one glass of wine a night Substance Use Type: None Substance Use Comment - Amount & Last Used: recently quit opiod Smoking Status (MU): Former Smoker Type: Cigarettes Amount Used/How Often: 1/3 PPD Have You Smoked in the Last Year: Yes When Did the Patient Quit Smoking/Using Tobacco: 3 weeks Review of Systems All Other Systems Reviewed And Are Negative: Yes Constitutional: Positive: Negative. Negative: Fever, Chills ENT: Positive: Nasal Discharge - PND. Negative: Sore Throat, Sinus Congestion, Sinus Pain/Tenderness Respiratory: Positive: Shortness Of Breath - and wheezing feeling with coughing , Cough - nonproductive Cardiovascular: Positive: Negative Gastrointestinal: Positive: Negative. Negative: Vomiting, Nausea Musculoskeletal: Positive: Negative Neurological: Positive: Negative Physical Exam Triage Information Reviewed: Yes Appearance: Well-Appearing, No Pain Distress, Well-Nourished Vital Signs: Initial Vital Signs Temp 99.5 F 02/22/19 14:27 Pulse 95 02/22/19 14:27 Resp 16 02/22/19 14:27 BP 103/63 02/22/19 14:27 Pulse Ox 97 02/22/19 14:27 Vital Signs Reviewed: Yes Eyes: Positive: Conjunctiva Clear ENT: Positive: Hearing grossly normal Neck exam: Normal Neck: Positive: Supple, Nontender, No Lymphadenopathy Respiratory Exam: Normal Respiratory: Positive: Lungs clear, Normal breath sounds, No respiratory distress, No accessory muscle use. Negative: Crackles, Rhonchi, Stridor, Wheezing Cardiovascular Exam: Normal Cardiovascular: Positive: RRR, No Murmur. Negative: Tachycardia Neurological: Positive: Alert Psychological: Positive: Age Appropriate Behavior Skin Exam: Normal Respiratory Course/Dx - Course Course Of Treatment: No evidence of bacterial infection based on physical exam findings and normal VS. I treated patient with advair and tesslon perles to help alleviate symptoms. Discussed acute bronchitis and possible lengthy duration of symptoms. Instructed to continue with symptomatic treatment and to follow up with pcp if symptoms worsen or do not begin to resolve within the next couple weeks. Patient voiced understanding and agreed with treatment plan. - Differential Dx/Diagnosis Provider Diagnosis: Acute bronchitis with bronchospasm Discharge ED - Sign-Out/Discharge Documenting (check all that apply): Patient Departure All imaging exams completed and their final reports reviewed: No Studies - Discharge Plan Condition: Stable Disposition: HOME Prescriptions: Benzonatate CAP* [Tessalon 100 MG CAP*] 100 mg PO BID PRN #28 cap PRN Reason: Cough Fluticasone-Salmeterol 100-50* [Advair Diskus 100-50*] 1 puff INH BID PRN #1 diskus PRN Reason: Sob/Wheezing Patient Education Materials: Acute Bronchitis (ED), Bronchospasm (ED) Referrals: Chong Cintron MD [Primary Care Provider] - If Needed Additional Instructions: You may take the tesslon perles as prescribed for cough relief. Use the take an over the counter decongestant and/or Flonase to help reduce your mucus production and post nasal drip. Use the inhaled steroid as directed for your shortness of breath. You may continue with Robitussin. Get plenty of rest and increase your fluid intake. Follow up with your primary care doctor if your symptoms worsen or do not begin to resolve within 2 weeks. - Billing Disposition and Condition Condition: STABLE Disposition: Home
== END 2019-02-22 15:03 | disposition home or self-care (01) ==
LOC: UCEAST 14:09
DX: J20.9 Acute bronchitis, unspecified (principal); R09.82 Postnasal drip; R09.89 Other specified symptoms and signs involving the circulatory and respiratory systems; Z87.891 Personal history of nicotine dependence
CPT/HCPCS: 99212; G0463

== ENCOUNTER 2019-02-23 20:39 | Inpatient (IN) | payer BC ==
[2019-02-23 21:23] LABS: ABS Basophils 0.1 10^3/ul (0-0.2); ABS Eosinophils 0.2 10^3/ul (0-0.6); ABS Lymphocytes 1.4 10^3/ul (1.0-4.8); ABS Monocytes 0.5 10^3/ul (0-0.8); ABS Neutrophils 4.8 10^3/ul (1.5-7.7); Eosinophil % 3.5 %; Hematocrit 40 % (35-47); Hemoglobin 13.8 g/dL (12.0-16.0); Lymphocyte % 19.8 %; Mean Corpuscular HGB Conc 34 g/dL (31-36); Mean Corpuscular Hemoglobin 35 pg (27-31); Mean Corpuscular Volume 100 fL (80-97); Mean Platelet Volume 8.3 fL (7.4-10.4); Platelet Count 311 10^3/uL (150-450); Red Blood Count 3.99 10^6 /uL (3.70-4.87); Red Cell Distribution Width 14 % (10-15)
[2019-02-23 21:40] LABS: ALT 32 U/L (7-52); AST 36 U/L (13-39); Albumin 4.4 g/dL (3.2-5.2); Albumin/Globulin Ratio 1.8 (1-3); Alkaline Phosphatase 78 U/L (34-104); Anion Gap 9 mmol/L (2-11); Blood Urea Nitrogen 12 mg/dL (6-24); CO2 Carbon Dioxide 23 mmol/L (22-32); Calcium 8.9 mg/dL (8.6-10.3); Chloride 107 mmol/L (101-111); EGFR Non-African American 109.1 (>60); Globulin 2.5 g/dL (2-4); Glucose 115 mg/dL (70-100); Potassium 4.2 mmol/L (3.5-5.0); Sodium 139 mmol/L (135-145); Total Protein 6.9 g/dL (6.4-8.9)
[2019-02-23] MEDS ORDERED: Albuterol (2.5 MG) 0.5 % CONC 2.5 MG/0.5 ML NEB.SOLN (ICU and ED only) INH ONE (21:40)
[2019-02-23 21:46] LABS: HCG Pregnancy < 0.60 mIU/mL
[2019-02-23 22:08] LABS: Acetaminophen < 15 mcg/mL; Alcohol 166 mg/dL (<10); Salicylate < 2.50 mg/dL (<30)
[2019-02-23 22:22] LABS: TSH (Thyroid Stimulating Horm) 2.37 mcIU/mL (0.34-5.60)
--- NOTE | 2019-02-23 23:36 | ED ---
Psychiatric Complaint - HPI Summary HPI Summary: 43 year old female presents after overdose today. States that she has had bronchitis for the past 3 weeks. She states that she was going through detox for opiates when she got sick and then started to feel worse. She should become more more depressed. States she took 20 tabs of Tessalon and two of her .25 xanax to relax herself so she would be able to cut her throat. She states she went into the bathroom but was only able to cut her wrist. She states she has no history of overdoses. She states she has been taking cough medication like Robitussin today but did not overdose today on such. She has a history asthma. She denies any urinary symptoms. - History Of Current Complaint Chief Complaint: EDMentalHealth Time Seen by Provider: 02/23/19 21:03 Hx Last Menstrual Period: current - Allergies/Home Medications Allergies/Adverse Reactions: Allergies Allergy/AdvReac Type Severity Reaction Status Date / Time No Known Allergies Allergy Verified 02/22/19 14:34 PMH/Surg Hx/FS Hx/Imm Hx Endocrine/Hematology History: Denies: Hx Diabetes Cardiovascular History: Denies: Hx Hypertension, Hx Pacemaker/ICD Respiratory History: Reports: Hx Chronic Obstructive Pulmonary Disease (COPD) Denies: Hx Asthma History: Denies: Hx Dialysis, Hx Renal Disease Musculoskeletal History: Reports: Hx Back Problems Sensory History: Denies: Hx Contacts or Glasses, Hx Hearing Aid Opthamlomology History: Denies: Hx Contacts or Glasses Neurological History: Reports: Other Neuro Impairments/Disorders - PAIN CLINIC PT Psychiatric History: Reports: Hx Anxiety Denies: Hx Panic Disorder - Cancer History Cancer Type, 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 APPY 2018; bilat ciliac joint fusions - Immunization History Date of Tetanus Vaccine: Not utd Infectious Disease History: No Infectious Disease History: Denies: Traveled Outside the [place] in Last 30 Days - Family History Known Family History: Positive: Hypertension - Social History Alcohol Use: Occasionally Alcohol Amount: 1/2 to one glass of wine a night Substance Use Type: Reports: None Substance Use Comment - Amount & Last Used: recently quit opiod Smoking Status (MU): Heavy Every Day Tobacco Smoker Type: Cigarettes Amount Used/How Often: 1/3 PPD Have You Smoked in the Last Year: Yes Review of Systems Negative: Chest Pain Positive: Cough. Negative: Shortness Of Breath Positive: Other - left wrist laceration Positive: Depressed All Other Systems Reviewed And Are Negative: Yes Physical Exam Triage Information Reviewed: Yes Vital Signs On Initial Exam: Initial Vitals Temp Pulse Resp BP Pulse Ox 98.8 F 78 16 112/80 100 02/23/19 20:44 02/23/19 20:44 02/23/19 20:44 02/23/19 20:44 02/23/19 20:44 Vital Signs Reviewed: Yes Appearance: Positive: Well-Appearing Skin: Positive: Warm, Dry, Other - 3cm by 1/2cm laceration Head/Face: Positive: Normal Head/Face Inspection Eyes: Positive: Normal, Conjunctiva Clear ENT: Positive: Pharynx normal Respiratory/Lung Sounds: Positive: Clear to Auscultation, Breath Sounds Present Cardiovascular: Positive: Normal, RRR Abdomen Description: Positive: Nontender, Soft Bowel Sounds: Positive: Present Musculoskeletal: Positive: Normal Neurological: Positive: Normal Psychiatric: Positive: Depressed Procedures - Sedation Patient Received Moderate/Deep Sedation with Procedure: No - Laceration/Wound Repair 1 Location: Other - left wrist Description: Linear Length, Depth and Shape: 3cm by 1/2cm Irrigated w/ Saline (ccs): 500 Closure: Skin Adhesive, SteriStrips Diagnostics - Vital Signs Vital Signs Temp Pulse Resp BP Pulse Ox 02/23/19 22:00 107 95 02/23/19 21:58 105 104/66 96 02/23/19 21:53 108 20 99 02/23/19 21:38 102 21 117/74 96 02/23/19 21:29 112 14 119/66 97 02/23/19 21:00 108 19 96 02/23/19 20:58 105 24 134/86 94 02/23/19 20:57 106 22 95 02/23/19 20:44 98.8 F 78 16 112/80 100 - Laboratory Lab Results: Lab Results 02/23/19 02/23/19 02/23/19 Range/Units 21:15 21:15 21:15 WBC 7.0 (3.5-10.8) 10^3/uL RBC 3.99 (3.70-4.87) 10^6 /uL Hgb 13.8 (12.0-16.0) g/dL Hct 40 (35-47) % MCV 100 H (80-97) fL MCH 35 H (27-31) pg MCHC 34 (31-36) g/dL RDW 14 (10-15) % Plt Count 311 (150-450) 10^3/uL MPV 8.3 (7.4-10.4) fL Neut % (Auto) 68.4 % Lymph % (Auto) 19.8 % [place] % (Auto) 7.4 % Eos % (Auto) 3.5 % Baso % (Auto) 0.9 % Absolute Neuts (auto) 4.8 (1.5-7.7) 10^3/ul Absolute Lymphs (auto) 1.4 (1.0-4.8) 10^3/ul Absolute Monos (auto) 0.5 (0-0.8) 10^3/ul Absolute Eos (auto) 0.2 (0-0.6) 10^3/ul Absolute Basos (auto) 0.1 (0-0.2) 10^3/ul Absolute Nucleated RBC 0.0 10^3/ul Nucleated RBC % 0.0 Sodium 139 (135-145) mmol/L Potassium 4.2 (3.5-5.0) mmol/L Chloride 107 (101-111) mmol/L Carbon Dioxide 23 (22-32) mmol/L Anion Gap 9 (2-11) mmol/L BUN 12 (6-24) mg/dL Creatinine 0.60 (0.51-0.95) mg/dL Est GFR ( Amer) 132.0 (>60) Est GFR (Non-Af Amer) 109.1 (>60) BUN/Creatinine Ratio 20.0 (8-20) Glucose 115 H (70-100) mg/dL Calcium 8.9 (8.6-10.3) mg/dL Total Bilirubin 0.50 (0.2-1.0) mg/dL AST 36 (13-39) U/L ALT 32 (7-52) U/L Alkaline Phosphatase 78 (34-104) U/L B-Natriuretic Peptide 33 (<=100) pg/mL Total Protein 6.9 (6.4-8.9) g/dL Albumin 4.4 (3.2-5.2) g/dL Globulin 2.5 (2-4) g/dL Albumin/Globulin Ratio 1.8 (1-3) TSH 2.37 (0.34-5.60) mcIU/mL Beta HCG, Quant < 0.60 mIU/mL Salicylates < 2.50 (<30) mg/dL Acetaminophen < 15 mcg/mL Serum Alcohol 166 H (<10) mg/dL Result Diagrams: 02/23/19 21:15 02/23/19 21:15 Lab Statement: Any lab studies that have been ordered have been reviewed, and results considered in the medical decision making process. Re-Evaluation - Re-Evaluation First Eval Re-Evaluation Time: 00:05 Comment: has normal mental status, glued wound Course/Dx - Course Course Of Treatment: 43 year old female presents after overdose today. States that she has had bronchitis for the past 3 weeks. She states that she was going through detox for opiates when she got sick and then started to feel worse. She should become more more depressed. States she took 20 tabs of Tessalon and two of her .25 xanax to relax herself so she would be able to cut her throat. She states she went into the bathroom but was only able to cut her wrist. She states she has no history of overdoses. She states she has been taking cough medication like Robitussin today but did not overdose today on such. She has a history asthma. On examination patient becomes angry and then pleasant. Lungs are clear to auscultation. has 3cm by 1/2cm laceration to left wrist that cleaned and closed with glue. poison control was consulted and suggested observation for 6 hours. patient was observed and will be clear at 3am. patient signed out to dr mendoza pending [facility]. - Differential Dx/Clinical Impression Differential Diagnosis/HQI/PQRI: Positive: Anxiety, Depression, Suicide Attempt , Suicidal Ideation, Suicidal Gesture Provider Diagnosis: Medication overdose, Suicidal ideation, Laceration of left wrist Discharge ED - Sign-Out/Discharge Documenting (check all that apply): Sign-Out Patient Signing out patient TO: Edwin Mendoza - Discharge Plan Condition: Stable Referrals: Chong Cintron MD [Primary Care Provider] - - Billing Disposition and Condition Condition: STABLE
[2019-02-24 00:21] LABS: Urine Appearance Turbid; Urine Bilirubin Negative (Negative); Urine Blood 3+ (Negative); Urine Color Yellow; Urine Glucose Negative (Negative); Urine Ketones Negative (Negative); Urine Nitrite Negative (Negative); Urine Protein Negative (Negative); Urine Specific Gravity 1.016 (1.010-1.030); Urine Urobilinogen Negative (Negative)
[2019-02-24 00:44] LABS: Urine Benzodiazepine Screen Presumptive Positive (None Detect); Urine Opiates Screen None Detected (None Detect)
[2019-02-24 00:46] LABS: Urine Bacteria 1+ (Absent); Urine Red Blood Cell 3+(>10/hpf) (Absent); Urine Squamous Epithelial Cell Present (Absent); Urine White Blood Cell 3+(>20/hpf) (Absent)
--- NOTE | 2019-02-24 06:24 | ED ---
Progress - Progress Note Progress Note: Receiving sign-out from COSTA Kamara pending [facility]. [facility] decided to transfer the patient, per Dr. Peterson, Psychiatry. Re-Evaluation - Re-Evaluation First Eval Re-Evaluation Time: 00:05 Comment: has normal mental status, glued wound Course/Dx - Course Course Of Treatment: Receiving sign-out from COSTA Kamara at shift change 0230 pending [facility]. Patient cleared for [facility] at 0300, patient was stable throughout. E decided to transfer the patient, per Dr. Peterson, Psychiatry. Patient will be signed out to Dr. Lance pending [facility] transfer at shift change 0700 02/24/2019 - Diagnoses Provider Diagnoses: Depressive disorder Discharge ED - Sign-Out/Discharge Documenting (check all that apply): Sign-Out Patient Signing out patient TO: Gus Lance - Discharge Plan Condition: Stable Disposition[place] [facility] [place]illing Disposition and Condition Condition: STABLE Disposition: Psychiatric Facility [facility] - Attestation Statements Document Initiated by Cameron: Yes Documenting Scribe: Chris Campos Provider For Whom Cameron is Documenting (Include Credential): Edwin Horowitz MD Scribe Attestation: Chris Dimas, scribed for Edwin Horowitz MD on 02/24/19 at 2140. Scribe Documentation Reviewed: Yes Provider Attestation: The documentation as recorded by the Chris alarcon accurately reflects the service I personally performed and the decisions made by me, Edwin Horowitz MD Status of Scribe Document: Viewed
--- NOTE | 2019-02-24 07:18 | ED ---
Progress - Progress Note Progress Note: This pt is a sign out from Dr. Horowitz to Dr. Lance at shift change on 02/24/19 at 0700 pending transfer to another psychiatric facility. Re-Evaluation - Re-Evaluation First Eval Re-Evaluation Time: 00:05 Comment: has normal mental status, glued wound Second Eval Re-Evaluation Time: 10:07 Comment: Dr. Oden, psychiatrist, reports he will admit patient for unspecified depressive disorder. Third Eval Re-Evaluation Time: 11:20 Comment: Mental health territory account representative reports pt will be admitted on a voluntary status. Course/Dx - Course Course Of Treatment: This patient was received as a sign out from Dr. Horowitz pending transfer to another psychiatric facility. Dr. Oden, psychiatrist, reports there are beds now available at [facility] and patient will be admitted to [facility] with dx unspecified depressive disorder. - Diagnoses Provider Diagnoses: Depressive disorder Discharge ED - Sign-Out/Discharge Documenting (check all that apply): Patient Departure - Admit to [facility], Receiving Sign-Out Receiving patient FROM: Edwin Horowitz - Discharge Plan Condition: Stable Disposition: [place]CHIATRIC FAC[place] - Billing Disposition and Condition Condition: STABLE Disposition: Psychiatric Facility [facility] - Attestation Statements Document Initiated by Scribe: Yes Documenting Scribe: Stephanie Avalos Provider For Whom Cameron is Documenting (Include Credential): Gus Lance MD Scribe Attestation: Stephanie Dimas, scribed for Gus Lance MD on 02/24/19 at 1844. Scribe Documentation Reviewed: Yes Provider Attestation: The documentation as recorded by the Stephanie alarcon accurately reflects the service I personally performed and the decisions made by me, Gus Lance MD Status of Scribe Document: Viewed
[2019-02-24] MEDS: Mometasone/Formoter 100/5 MDI INH SCH ×2 (09:45→20:34)
[2019-02-24] MEDS ORDERED: Al Hydrox/Mg Hydrox/Simet LIQ* 30 ML UDC PO PRN (10:21)
[2019-02-24] MEDS ORDERED: Acetaminophen TAB* 325 MG PO PRN (10:21)
[2019-02-24] MEDS ORDERED: Fluticasone-Salmeterol 100-50* DISKUS INH PRN (10:23)
[2019-02-24] MEDS ORDERED: hydrOXYzine HCL TAB* 50 MG PO PRN (10:23)
[2019-02-24] MEDS: Albuterol HFA INHALER* 8 gm MDI INH PRN (23:40)
[2019-02-25] MEDS: Mometasone/Formoter 100/5 MDI INH SCH ×2 (08:46→20:11)
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
[2019-02-25] MEDS: DULoxetine DR CAP* 20 MG CAP.DR PO SCH (11:45)
--- NOTE | 2019-02-25 11:57 | PN ---
BSU: Group Therapy Note - Service Type Service Type: 30793 Group Psychotherapy - Cognitive Behavioral Group Therapy ( CBT):Patient was attentive and participatory in CBT programming this morning, and remained in good behavioral control. Patient expressed positive insights regarding relevant treatment interventions and goals.
[2019-02-25] MEDS: Albuterol HFA INHALER* 8 gm MDI INH PRN (15:49)
[2019-02-26 08:11] LABS: HDL Cholesterol 70.8 mg/dL
[2019-02-26] MEDS: DULoxetine DR CAP* 20 MG CAP.DR PO SCH (08:17)
[2019-02-26] MEDS: Mometasone/Formoter 100/5 MDI INH SCH ×2 (08:17→20:01)
--- NOTE | 2019-02-26 12:01 | PN ---
Subjective - Subjective Date of Service: 02/26/19 Service Type: 12387 Hosp care 35 min high complexity Subjective: Nursing Report: Patient was visible on unit, no behavioral incidents. Slept overnight. Attending group activities. CC: "I think I am ready for discharge Patient was seen and evaluated today in the common room. When asked about why she did not talk about her suicide attempt yesterday, she reported that being in the unit has allowed her reflect on things. She would like to go to a horse riding event Saturday. It was explained that she reached the unit yesterday for a evaluation and that after a suicide attempt longer term care is needed. Patient reported that being in the emergency room since Saturday is frustrating. Patient expressed that attempting suicide is not like her. Patient reported improvement of "zaps" with resuming cymbalta. She did not report being in any pain. She reported having an adequate appetite and sleep. The patient reports attending and participating in day groups. Per nursing no behavioral issues or overnight events reported. Patient reported that she is tolerating medications without side effects. Objective - General Observations Appearance: Neat Appears Stated Age: Yes Stature: WNL Posture: WNL Eye Contact: Average Behavior/Activity: WNL - Interaction Observations Attitude Towards Examiner: Cooperative Stated Mood: Dysphoric Affect: Restricted Speech Pattern/Tone: Normal Volume Thought Process: Coherent Perception: WNL Thought Content: Self-Deprecatory Hallucination Type: None Delusion Type: Somatic - Cognitive Function Orientation: A&O x 4 Level of Consciousness: Awake - Medication Compliance Cooperative with Inpatient Medication Regimen: Yes - Group Participation Participates in Group Activities: Yes Assessment - Assessment Merits Inpatient Hospitalization: For Immediate Safety Clinical Impression: 43 year old female with history of depression and recent suicide attempt by cutting her wrist and overdose came to the hospital and was admitted to the BSU at [facility]. Plan - Plan Treatment Plan: Name: JOSEPH BAUMAN Birthdate: 1975 [id number] #Q30 minute observation with staff pass # The patient requires psychiatric inpatient admission at this time to assure safety, receive treatment and work toward stabilization. # B-HCG was ordered and results are negative. # Continue cymbalta at 40mg daily # Obtain collateral information obtained from her who confirmed no stockpiles of medications or firearms. # Collaboration with Social Work #Previous smoker declined nicotine replacement #Goals before discharge include: To eliminate/ reduce suicidal ideation Tentative Discharge: Saturday Continued Medication Management: Continue Outpt Medication Medications: Current Medications Acetaminophen (Tylenol Tab*) 650 mg PO Q4H PRN PRN Reason: for pain; or Temp >101 F Last Admin: 02/24/19 20:36 Dose: 650 mg Al Hydrox/Mg Hydrox/Simethicone (Maalox Plus*) 30 ml PO Q4H PRN PRN Reason: INDIGESTION Albuterol (Ventolin Hfa Inhaler*) 2 puff INH Q4H PRN PRN Reason: SHORTNESS OF BREATH Last Admin: 02/25/19 15:49 Dose: 2 puff Duloxetine HCl (Cymbalta Cap*) 40 mg PO DAILY [facility] Last Admin: 02/26/19 08:17 Dose: 40 mg Hydroxyzine HCl (Atarax Tab*) 50 mg PO Q6H PRN PRN Reason: anxiety Mometasone Furoate/Formoterol Fumar (Dulera 100/5 Mdi*) 2 puff INH BID [facility] Last Admin: 02/26/19 08:17 Dose: 2 puff - Discharge Plan Discharge Plan: Inpatient Hospitalization
[2019-02-27] MEDS: DULoxetine DR CAP* 20 MG CAP.DR PO SCH (12:15)
[2019-02-27] MEDS: Mometasone/Formoter 100/5 MDI INH SCH ×2 (12:16→20:08)
--- NOTE | 2019-02-27 12:42 | PN ---
Subjective - Subjective Date of Service: 02/27/19 Service Type: 07164 Hosp care 35 min high complexity Subjective: Nursing Report: Patient was visible on unit, no behavioral incidents. Attending group activities. CC: "I am doing better Patient expressed being sorry for being defensive during yesterdays conversation. Patient was seen and evaluated today in the common room. The patient reported she feels safe on the unit and is interacting with peers. She reported having adequate appetite and interrupted sleep. The patient reports attending and participating in day groups. Per nursing no behavioral issues or overnight events reported. Patient reported that she is tolerating medications without side effects. Objective - General Observations Appearance: Neat Appears Stated Age: Yes Stature: WNL Posture: WNL Eye Contact: Average Behavior/Activity: WNL - Interaction Observations Attitude Towards Examiner: Cooperative Stated Mood: Elevated Affect: Restricted Speech Pattern/Tone: Clear Thought Process: Coherent Perception: WNL Thought Content: WNL Hallucination Type: None Delusion Type: None - Cognitive Function Orientation: A&O x 4 Level of Consciousness: Awake - Medication Compliance Cooperative with Inpatient Medication Regimen: Yes - Group Participation Participates in Group Activities: Yes Assessment - Assessment Merits Inpatient Hospitalization: For Immediate Safety Clinical Impression: 43 year old female with history of depression and recent suicide attempt by cutting her wrist and overdose came to the hospital and was admitted to the BSU at [facility]. Plan - Plan Treatment Plan: Name: JOSEPH BAUMAN Birthdate: 1975 [id number] #Q30 minute observation with staff pass # The patient requires psychiatric inpatient admission at this time to assure safety, receive treatment and work toward stabilization. # B-HCG was ordered and results are negative. # Continue cymbalta at 40mg daily # Obtain collateral information obtained from her who confirmed no stockpiles of medications or firearms. # Collaboration with Social Work #Previous smoker declined nicotine replacement # Plan to return home Saturday #Goals before discharge include: To eliminate/ reduce suicidal ideation Tentative Discharge: Saturday Continued Medication Management: Continue Outpt Medication Medications: Current Medications Acetaminophen (Tylenol Tab*) 650 mg PO Q4H PRN PRN Reason: for pain; or Temp >101 F Last Admin: 02/24/19 20:36 Dose: 650 mg Al Hydrox/Mg Hydrox/Simethicone (Maalox Plus*) 30 ml PO Q4H PRN PRN Reason: INDIGESTION Albuterol (Ventolin Hfa Inhaler*) 2 puff INH Q4H PRN PRN Reason: SHORTNESS OF BREATH Last Admin: 02/25/19 15:49 Dose: 2 puff Duloxetine HCl (Cymbalta Cap*) 40 mg PO DAILY [facility] Last Admin: 02/27/19 12:15 Dose: 40 mg Hydroxyzine HCl (Atarax Tab*) 50 mg PO Q6H PRN PRN Reason: anxiety Mometasone Furoate/Formoterol Fumar (Dulera 100/5 Mdi*) 2 puff INH BID [facility] Last Admin: 02/27/19 12:16 Dose: 2 puff - Discharge Plan Discharge Plan: Inpatient Hospitalization
--- NOTE | 2019-02-27 13:06 | PN ---
BSU: Group Therapy Note - Service Type Service Type: 85808 Group Psychotherapy - Cognitive Behavioral Group Therapy ( CBT):Patient was attentive and participatory in CBT programming this morning, and remained in good behavioral control. Patient expressed positive insights regarding relevant treatment interventions and goals.
--- NOTE | 2019-02-27 20:37 | PN ---
Hospitalist Progress Note Date of Service: 02/27/19 Brief Overnight consult note 43 F, BSU pt, was called to bedside by psych provider for laceration on hand that was previously steri-stripped with skin glue as well. Pt reports mild itching and mild tenderness PE Pleasant well appearing woman in NAD, VSS from prior, non toxic appearing L wrist with 4cm laceration and 2mm opening, well healing granulation base with mild erythema, scant purulent d/c Plan: #Laceration: Very mild erythema with e/o early cellulitis -Cleaned with chlorehexedine, re applied steri strip with tefla and tegaderm -Start oral Bactrim x 5 days -We will follow every other day, tegaderm and tefla may be removed, allow steri strips to fall off on their own as more of a scar appears. Thank you for consulting us, and will follow on 03/01 or sooner PRN
[2019-02-27] MEDS: Sulfamethox/Trimethoprim DS 800/160* TAB PO SCH (23:02)
[2019-02-28] MEDS: Sulfamethox/Trimethoprim DS 800/160* TAB PO SCH ×2 (08:43→21:41)
[2019-02-28] MEDS: DULoxetine DR CAP* 20 MG CAP.DR PO SCH (08:44)
[2019-02-28] MEDS: Mometasone/Formoter 100/5 MDI INH SCH ×2 (08:45→21:40)
--- NOTE | 2019-02-28 16:13 | PN ---
Subjective - Subjective Date of Service: 02/28/19 Service Type: [id number] Hosp care 15 min low complexity Subjective: Joseph reports still having poor recall of events leading up to suicide attempt. Reports a consistent feeling over time she can recall is being left behind after a few years of severe chronic pain, remedied by surgeries in August 2018 and October 2018 (bilateral sacroiliac operation in 2 steps). Sees suicide attempt as a [id number]-[id number] letdown on reflection on all she had lost, feeling disconnected from her previous life. Objective - General Observations Appearance: Neat Appears Stated Age: Yes Stature: WNL Posture: WNL Eye Contact: Average Behavior/Activity: WNL - Interaction Observations Attitude Towards Examiner: Cooperative Stated Mood: Euthymic - but haven't slept well the past couple nights, maybe Cymbalta Affect: Full Speech Pattern/Tone: Clear, Appropriate, Normal Volume Thought Process: Coherent, Goal Directed Perception: WNL Thought Content: WNL Hallucination Type: None Delusion Type: None - Cognitive Function Orientation: A&O x 4 Level of Consciousness: Awake, Alert, Appropriate Cognition: WNL Estimated Intelligence: Above Normal Insight: WNL Judgment Within Normal Limits: Yes - Medication Compliance Cooperative with Inpatient Medication Regimen: Yes - Group Participation Participates in Group Activities: Yes Assessment - Assessment Merits Inpatient Hospitalization: For Stabilization Inpatient DSM-V Dx: F32.2 Clinical Impression: 43 year old female with history of depression and recent suicide attempt by cutting her wrist and overdose came to the hospital and was admitted to the BSU at [facility]. 02.28.19 Reports recovering from depressive bout with remission of SI and improving mood. Reports working through the history contributing to depressive disorder. Might have sleep disturbance from Cymbalta, per her recollection of previous insomnia with duloxetine. Plan - Plan Treatment Plan: Name: JOSEPH BAUMAN Birthdate: 1975 [id number] #Q30 minute observation with staff pass # The patient requires psychiatric inpatient admission at this time to assure safety, receive treatment and work toward stabilization. # B-HCG was ordered and results are negative. # Continue cymbalta at 40mg daily # Obtain collateral information obtained from her who confirmed no stockpiles of medications or firearms. # Collaboration with Social Work #Previous smoker declined nicotine replacement # Plan to return home Saturday #Goals before discharge include: To eliminate/ reduce suicidal ideation Tentative Discharge: Saturday02.28.19 Add restoril for the weekend at 15 mg nightly prn insomnia. patient understands she is unlikely to be prescribed this medication at discharge Continued Medication Management: Continue Outpt Medication - a private psychologist, perhaps meds managed by PCP Medications: Current Medications Acetaminophen (Tylenol Tab*) 650 mg PO Q4H PRN PRN Reason: for pain; or Temp >101 F Last Admin: 02/24/19 20:36 Dose: 650 mg Al Hydrox/Mg Hydrox/Simethicone (Maalox Plus*) 30 ml PO Q4H PRN PRN Reason: INDIGESTION Albuterol (Ventolin Hfa Inhaler*) 2 puff INH Q4H PRN PRN Reason: SHORTNESS OF BREATH Last Admin: 02/25/19 15:49 Dose: 2 puff Duloxetine HCl (Cymbalta Cap*) 40 mg PO DAILY [facility] Last Admin: 02/28/19 08:44 Dose: 40 mg Hydroxyzine HCl (Atarax Tab*) 50 mg PO Q6H PRN PRN Reason: anxiety Last Admin: 02/27/19 23:05 Dose: 50 mg Mometasone Furoate/Formoterol Fumar (Dulera 100/5 Mdi*) 2 puff INH BID [facility] Last Admin: 02/28/19 08:45 Dose: 2 puff Trimethoprim/Sulfamethoxazole (Bactrim Ds 800/160 Tab*) 1 tab PO BID [facility] Stop: 03/04/19 09:01 Last Admin: 02/28/19 08:43 Dose: 1 tab - Discharge Plan Discharge Plan: Outpatient Follow Up
[2019-02-28] MEDS: Temazepam CAP* 15 MG PO PRN (21:43)
[2019-03-01] MEDS: DULoxetine DR CAP* 20 MG CAP.DR PO SCH (08:40)
[2019-03-01] MEDS: Sulfamethox/Trimethoprim DS 800/160* TAB PO SCH ×2 (08:40→20:20)
[2019-03-01] MEDS: Mometasone/Formoter 100/5 MDI INH SCH ×2 (08:40→20:21)
--- NOTE | 2019-03-01 11:30 | PN ---
Hospitalist Progress Note Date of Service: 03/01/19 Follow up : left wrist laceration Patient reports that the steri strips have falling off left wrist again. Patient denies pain or redness to left wrist. PE: Pleasant, cooperative female, no acute distress. Left wrist with healing 4cm laceration, not approximated, with 2 mm opening. no surrounding redness. No drainage. Plan: Will continue antibiotic ointment and telfa dressing. No other management needed. Recommend keep area clean and dry, wash daily with mild soap and water, and apply clean dressing and antibiotic ointment. Thank you for consulting us in the care of this patient - we will sign off. Please call if further management is needed.
[2019-03-01] MEDS: Temazepam CAP* 15 MG PO PRN (20:21)
[2019-03-02] MEDS: Sulfamethox/Trimethoprim DS 800/160* TAB PO SCH (08:10)
[2019-03-02] MEDS: DULoxetine DR CAP* 20 MG CAP.DR PO SCH (08:10)
[2019-03-02] MEDS: Mometasone/Formoter 100/5 MDI INH SCH (08:11)
[2019-03-02 09:51] VITALS: BP 103/59
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
== END 2019-03-02 11:41 | disposition home or self-care (01) | DRG 751 ==
LOC: ED 20:39 → BSU 02-24 15:30
PROVIDERS: ADMIT Psychiatry & Neurology Psychiatry; ATTEND Psychiatry & Neurology Psychiatry
DX: F32.2 Major depressive disorder, single episode, severe without psychotic features (principal); L03.114 Cellulitis of left upper limb; T48.3X2A Poisoning by antitussives, intentional self-harm, initial encounter; T42.4X2A Poisoning by benzodiazepines, intentional self-harm, initial encounter; S61.512A Laceration without foreign body of left wrist, initial encounter; X78.1XXA Intentional self-harm by knife, initial encounter; J44.9 Chronic obstructive pulmonary disease, unspecified; F41.9 Anxiety disorder, unspecified; M54.9 Dorsalgia, unspecified; Y92.009 Unspecified place in unspecified non-institutional (private) residence as the place of occurrence of the external cause; Z79.899 Other long term (current) drug therapy; Z87.891 Personal history of nicotine dependence; Z82.49 Family history of ischemic heart disease and other diseases of the circulatory system
CPT/HCPCS: 36415; 80053; 80061; 80307; 80320; 80329; 81003; 81015; 83036; 83880; 84443; 84702; 85025; 87086; 90853; 93005; 99222; 99231; 99233; 99283; A9270-GY; G0480; J7611